=== PATIENT | female | born 1990 | race Caucasian/White ===

== ENCOUNTER 2018-09-11 23:20 | Observation (INO) | payer OTHER ==
[~2018-09-11] VITALS: Ht 170.2 cm; Wt 101.2 kg
[2018-09-12] MEDS ORDERED: PNV1TABL50 PO (00:08)
== END 2018-09-12 00:30 | disposition home or self-care (01) ==
LOC: L&D 23:20
PROVIDERS: ADMIT Obstetrics & Gynecology; ATTEND Obstetrics & Gynecology
DX: O36.8120 Decreased fetal movements, second trimester, not applicable or unspecified (principal); Z3A.23 23 weeks gestation of pregnancy
CPT/HCPCS: 99281; G0378

== ENCOUNTER 2019-12-11 15:26 | Observation (INO) | payer MEDICAID ==
[~2019-12-11] VITALS: Ht 170.2 cm; Wt 107.0 kg
[~2019-12-11 15:26] MED LIST: PNV1TABL50 PO
[2019-12-11] MEDS: LACTATED RINGERS 500ML 500 ML IV SCH ×2 (15:45→21:21)
[2019-12-11 16:18] LABS: HEMOGLOBIN. 13.5 g/dL (12.0-16.0); MEAN CORPUSCULAR HEMOGLOBIN 27.2 pg (28.0-32.0); MEAN CORPUSCULAR VOLUME 80.7 fL (81.0-99.0); MEAN PLATELET VOLUME 9.1 fl (7.4-10.4); PLATELET 198 x1000/uL (130-400); RED BLOOD CELL COUNT 4.96 mill/uL (4.2-5.4); RED CELL DISTRIBUTION WIDTH 16.3 % (11.6-14.6)
[2019-12-11 16:26] LABS: CHLORIDE 114 mEq/L (98-107)
[2019-12-11 17:00] LABS: CLARITY URINE CLOUDY (CLEAR); COLOR URINE ORANGE (YELLOW); KETONES URINE 2+ (NEGATIVE); LEUKOCYTE ESTERASE URINE 1+ (NEGATIVE); NITRITE URINE NEGATIVE (NEGATIVE); OCCULT BLOOD URINE NEGATIVE (NEGATIVE); PROTEIN URINE 1+ (NEGATIVE); SPECIFIC GRAVITY URINE 1.025 (1.005-1.030)
[2019-12-11 17:11] LABS: PLATELET ESTIMATE NORMAL
[2019-12-11] MEDS ORDERED: CEFAZOLIN 2,000 MG in DEXT 5% WATER 100 ML IV NR (19:00)
[2019-12-11 20:08] LABS: BASOPHILS % 0.2 % (0.0-2.0); HEMOGLOBIN. 11.7 g/dL (12.0-16.0); LYMPHOCYTES % 8.9 % (20.0-50.0); MEAN CORPUSCULAR HEMOGLOBIN 27.1 pg (28.0-32.0); MEAN CORPUSCULAR VOLUME 80.7 fL (81.0-99.0); MEAN PLATELET VOLUME 9.1 fl (7.4-10.4); MONOCYTES % 5.1 % (2.0-8.0); NEUTROPHILS % 85.8 % (40.0-76.0); PLATELET 188 x1000/uL (130-400); RED BLOOD CELL COUNT 4.34 mill/uL (4.2-5.4); RED CELL DISTRIBUTION WIDTH 15.8 % (11.6-14.6)
[2019-12-11] MEDS ORDERED: ACETAMINOPHEN 650MG/20.3ML UDC PO PRN (20:45)
[2019-12-11] MEDS ORDERED: ONDANSETRON HCL 4MG/2ML INJ IV PRN (20:45)
== END 2019-12-12 02:20 | disposition home or self-care (01) ==
LOC: 8 EST LDRP 15:26
PROVIDERS: ADMIT Obstetrics & Gynecology; ATTEND Obstetrics & Gynecology
DX: O26.893 Other specified pregnancy related conditions, third trimester (principal); E86.0 Dehydration; M54.9 Dorsalgia, unspecified; R10.9 Unspecified abdominal pain; Z3A.35 35 weeks gestation of pregnancy
CPT/HCPCS: 36415; 76805; 76817; 76818; 80053; 81003; 85025; 87040; 87086; 96361; 96365; 99281; G0378; J0690; J7060; 96360; J7120